=== PATIENT | male | born 1985 | race Caucasian/White ===

== ENCOUNTER 2017-05-12 12:23 | Emergency (ER) | payer BC ==
[2017-05-12 12:38] VITALS: BP 161/92
[2017-05-12] MEDS ORDERED: DIPHTH,PERTUSS(ACELL),TET VAC 0.5 ML VIAL IM ONE ×2 (12:44→12:53)
[2017-05-12] MEDS ORDERED: LIDOCAINE HCL 20 ML VIAL ONE (12:47)
--- NOTE | 2017-05-12 13:01 | ERNOTE ---
Medical Problem HPI - Narrative Date of Service: 05/12/17 - General Chief Complaint: Laceration Time Seen by Provider: 05/12/17 12:41 Source: patient Exam Limitations: no limitations - Immun/Allergies/Home Medications Immunizations: IMMUNIZATION HX Immunizations Up to Date No History of Influenza Vaccine No Hx Pneumococcal Vaccination No Allergies/Adverse Reactions: Allergies No Known Allergies Allergy (Unverified 05/12/17 12:34) Home Medications: HOME MEDICATIONS NK [No Home Medication] 05/12/17 [Last Taken Unknown] - History of Present History Narrative: Pt. comes in with c/o laceration over R fifth dorsal MCP joint 9 hours ago. Pt. denies any numbness, tingling, SOB, CP, NVD, fever, but states that packing and pressure alleviated the symptoms and movement exacerbated the bleeding but denies pain at this time. Severity: mild Modifying Factors - (Improves): Present: other - pressure Modifying Factors - (Worsens): Present: movement Review of Systems - Review of Systems Constitutional: Present: no symptoms reported. Absent: fever, chills, weakness , fatigue, malaise EYE: Present: no symptoms reported ENT: Present: no symptoms reported Respiratory: Present: no symptoms reported. Absent: shortness of breath, cough , wheezing Cardiology: Present: no symptoms reported. Absent: chest pain, palpitations, edema Gastrointestinal/Abdominal: Present: no symptoms reported. Absent: nausea, vomiting, diarrhea, abdominal pain Genitourinary: Present: no symptoms reported. Absent: frequency, decreased urinary output Musculoskeletal: Present: no symptoms reported. Absent: back pain, joint pain Skin: Present: other - laceration R fifth MCP joint Neurological: Present: no symptoms reported. Absent: headache, dizziness/light- headedness, numbness, tingling Endocrine: Present: no symptoms reported Hematologic/Lymphatic: Present: no symptoms reported Psych: Present: no symptoms reported All Other Systems: All systems neg except as marked - Patient's Past Medical History Patient History - Medical: No pertinent hx Patient History - Cardiac/Respiratory: No pertinent hx Patient History - Cancer: No Hx of Cancer Patient History - Surgical Procedures: No surgical history Patient History - Other: None - Social History Living Situations: home Abuse History: No History of abuse Psych History: No pertinent hx Smoking Status: Current every day smoker Have you smoked in the past 12 months: Yes Do you dip or chew tobacco: No Alcohol Use: occasionally Drug Use: none - Immunizations Immunizations Up to Date: No Hx Pneumococcal Vaccination: No History of Influenza Vaccine: No Physical Exam - Physical Exam General Appearance: Present: wd/wn, alert, no apparent distress Head Exam: Present: normal inspection, no evidence of injury Eye Exam: Normal inspection: bilateral Respiratory: Present: no respiratory distress, normal breath sounds, no accessory muscle use, chest nontender, lungs clear Cardiovascular/Chest: Present: regular rate, rhythm, no murmur, normal peripheral pulses Extremity Exam: Present: other - 1cm laceration partial thickness open R dorsal MCP joint. Neurological Exam: Present: alert, oriented, normal mood/affect, no motor/ sensory deficits Skin Exam: Present: normal color, warm/dry ED Progress - Date and Time Seen: Date and Time: 05/12/17 12:58 Laceration does not require suturing but pt. is requesting as he is afraid that there will be delayed healing as he uses his hand often nad needs to be able to make a fist. - Vital Signs Patient's Vital Signs:: I have reviewed the patient's vital signs. Vital Signs: Vital Signs 05/12/17 12:34 Temperature 36.3 C L Pulse Rate 82 Respiratory 14 Rate Blood Pressure 161/92 O2 Sat by Pulse 100 Oximetry - X-Ray X-Ray #1 X-Ray: hand Interpretation: Reviewed by me X-ray Comments: no obvious acute osseous abnormality. - Progress/Reassessment Chief Complaint: Laceration Progress:: Improved Procedures Right Volar Hand 5th Digit Date and Time: 05/12/2017 @ 1333 Anesthesia: 1% Lidocaine Length of Repair/Wound (cm): 1 Wound's Depth/Shape: superficial Wound Explored: clean Wound Intervention: irrigated w/saline Distal NVT: neuro/vasc intact, no tendon injury Wound Repaired With: no closure required Suture Size/Type: 6-0, prolene Number of Sutures: 4 Layer Closure: Simple Estimated blood loss (ml): 0 Wound Dressing: sterile dressing applied Complications: Pt lazara procedure well Departure Clinical Impression: Laceration - Departure Disposition: Home self-care Condition: Good Instructions: Laceration Care, Adult, [id number], Form - Excuse from Work, School, or Physical Activity Additional Instructions: Please follow up with primary provider in 7-10 days for suture removal. Referrals: Lapinid,Perlita, MD [Primary Care Provider] -
== END 2017-05-12 13:38 | disposition home or self-care (01) ==
LOC: ER 12:23
PROC: 0HQFXZZ Repair Right Hand Skin, External Approach (ICD-10-PCS; principal; 2017-05-12)
DX: S61.216A Laceration without foreign body of right little finger without damage to nail, initial encounter (principal); F17.200 Nicotine dependence, unspecified, uncomplicated; Z23 Encounter for immunization; X58.XXXA Exposure to other specified factors, initial encounter; Y93.9 Activity, unspecified; Y92.9 Unspecified place or not applicable